=== PATIENT | male | born 1995 | race Caucasian/White ===

== ENCOUNTER 2021-10-10 17:24 | Emergency (ER) | payer SELFPAY ==
[~2021-10-10] VITALS: Ht 180.3 cm; Wt 125.0 kg
[2021-10-10 17:48] VITALS: BP 156/83
== END 2021-10-10 22:54 | disposition left against medical advice (07) ==
LOC: ER 17:24
DX: Z53.21 Procedure and treatment not carried out due to patient leaving prior to being seen by health care provider (principal)